=== PATIENT | male | born 1965 | race Caucasian/White ===

== ENCOUNTER → 2016-06-08 | Outpatient (CLI) | payer OTHER | LOC: HEART 5 13:30 | DX: R68.89 Other general symptoms and signs (principal) ==

== ENCOUNTER → 2016-07-21 | Outpatient (CLI) | payer OTHER | LOC: HEART 5 13:56 | DX: R06.02 Shortness of breath (principal); R60.9 Edema, unspecified | CPT/HCPCS: 93306 ==